=== PATIENT | female | born 2005 | race Caucasian/White ===

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

== ENCOUNTER 2025-06-22 17:14 | Emergency (ER) | payer MEDICAID, SELFPAY ==
--- OUTSIDE RECORDS SUMMARY | 2021-12-18 04:00 | XMS_ITS | Continuity of Care Document ---
Author Organization [facility] Address [address] [id number] [address] Phone Care Team Providers Care Loading Manager Name Role Phone [place], [place] Unavailable Unavailable Allergies, Adverse Reactions, Alerts Substance Reaction Status Criticality ESCITALOPRAM OXALATE Active No Info rmation Medications Medication Instructions Dosage Effective Dates (start - stop) Status Comments cetirizine 10 mg tablet 1 tablet by oral route daily - Active trazodone 150 mg tablet 1 tablet by oral route daily at [facility] - Active PreviDent 5000 Sensitive 1.1 %-5 % Dental Paste brush by topical route Not Available - Active use a half a pea size amount, spit do not rinse, NPO for 30 min. Lamictal 100 mg tablet - Active Problems Condition Type Effective Dates (start - stop) Clini manoj Status Comments No Known Problems Procedures Procedure Date OFFICE/OUTPATIENT VISIT EST Infectious Agent DNA Or RNA Patient Left / No Show OFFICE/OUTPATIENT VISIT, EST OFFICE/OUTPATIENT VISIT, EST NO CHARGE Finalize Template Workaround Behavioral Health Consult PREV VISIT EST AGE 12-17 Abdominal - Single Quadrant Or Organ, Li mited URINE TEST OFFICE/OUTPATIENT VISIT, NEW Prefabricated Stainless Stee l [place] Permanent To Analgesia, Anxiolysis, Inhalation Of Nit anali Oxide EDR Approval Note EDR Approval Note Prefabricated Stainless Stee l [place] Permanent To Amalgam Two Surfaces, Primary Or Permanent Analgesia, Anxiolysis, Inhalation Of Nit anali Oxide EDR Approval Note EDR Approval Note Comprehensive Oral Evaluatio n New Or Established Bitewings Two Films Panoramic Film Prophylaxis Child Topical Fluoride Varnish; Therapeutic Ap plication EDR Approval Note Comprehensive Oral Evaluatio n New Or Established Intraoral Periapical First Film Intraoral Periapical Each Additional Film Intraoral Periapical Each Additional Film Intraoral Periapical Each Additional Film Intraoral Periapical Each Additional Film Intraoral Periapical Each Additional Film Intraoral Periapical Each Additional Film Sedative Filling Sedative Filling Sedative Filling EDR Approval Note Advance Directives Directive Yes / No Effective Date File Name No Information Encounters Encounter Description Practice Location Reason(s) For Visit Diagnoses Date Provider Providers Copied on Encounter OFFICE/OUTPA TIENT VISIT EST [facility], [id number]- [place], [place], [id number], [place] tel:[phone] Pediatrics F1 [place]* (chief complaint) CoughAcute pharyngitis, unspecified etiologyExpo sure to COVID-19 virus 2 [place]. [address], [place], [address], [place]. tel:[phone] Referring Provider: [place] Velazquez, [address] [place], [address] . tel:[phone] [facility], [id number]- [facility], [place], [place], [address], [place] tel:[phone] Family Medicine F1 Encntr for obs for susp expsr to oth biolg agents ruled out 2 Alec Monson. [address], [place], [address], [place]. tel:[phone] Referring Provider: Ermias Bro, [address] [place], [address] . tel:[phone] [facility], [id number], [place], [address], [place] tel:[phone] [facility] cough, fever, wheezing, dizziness (chief complaint) No Information 1 Luis Miguel Read. [address], [place], [address], [place]. tel:[phone] Referring Provider: Jacek Bolanos, [address] [place], [address] . tel:[phone] OFFICE/OUTPA TIENT VISIT, [facility], [id number], [address], [place] tel:[phone] Pediatrics F1 Sore throat* (chief complaint) CoughNasal congestionSe nsation of fullness in both ears 1 Juan Carlos Evans. [address] [place], [address], [place]. tel:[phone] Referring Provider: Cristina Rangel, [address] [place], [address]. tel:[phone] OFFICE/OUTPA TIENT VISIT, [facility], [id number] [place], [address], [place] tel:[phone] [facility] (chief complaint) Unspecified acute conjunctivit is, left eye Sep- 1 Katherine Liu. [address], [place], [address], [place]. [phone] Referring Provider: Noe Murphy, [address] [place], [address] . tel:[phone] [facility], [id number] [id number]- [place], [place], [address], [place] tel:[phone] [facility] No Information 1 Nahid Carlisle. [address] [place], [address], [place]. [phone] Referring Provider: Orestes Padilla, [address] [place], [address]. tel:[phone] [facility], [id number], [place], [address], [place] tel:[phone] Behavioral Health Integration Other specified counseling Sep-2 0 No Information [facility], [id number] 10627[place], [place], [address], [place] tel:[phone] Family Medicine F1 Well child (chief complaint) Encntr for routine child health exam w/o abnormal findings Jul- 0 Alec Monson. [address], [place], [address], [place]. tel:[phone] PREV VISIT EST AGE 12-17 [facility], [id number]- [place], [place], [address], [place] tel:[phone] Family Medicine F1 Well child (chief complaint) Encntr for routine child health exam w/o abnormal findings Sep-2 0 Alec Monson. [address], [place], [address], [place]. tel:[phone] Referring Provider: Ermias Bro, [address] [place], [address] . tel:[phone] [facility], [id number] 4174864WZP[place]est[place], [place], [address], [place] tel:[phone] Family Medicine F1 No Information Sep-0 0 Alec Monson. [address], [place], [address], [place]. tel:[phone] [facility], [id number] 84640[place]DWP[place], [address], [place] tel:[phone] [facility] F1 Right upper quadrant pain 0 Alec Monson. [address], [place], [address], [place]. tel:[phone] Referring Provider: Ermias Bro, [address] [place], [address] . tel:[phone] OFFICE/OUTPA TIENT VISIT, [facility], [id number], [place], [address], [place] tel:[phone] Family Medicine F1 contraceptive management (chief complaint)psy ch meds (chief complaint) Other depressionEn counter for initial prescription of contraceptiv e pillsRight upper quadrant abdominal pain 0 Alec Ermias. [address], [place], [address], [place]. tel:[phone] Referring Provider: Ermias Bro, [address] [place], [address] . tel:[phone] [facility], [id number] 5358[place], [place], [address], [place] tel:[phone] Dental [facility] No Information Jan- 0-201 4 No Information [facility], [id number] [place], [address], [place] tel:[phone] [facility] No Information 4 No Information [facility], [id number] [id number]- [facility], [place], [place], [address], [place] tel:[phone] [facility] No Information 3 No Information [facility], [id number] [id number]- [facility], [place], [place], [address], [place] tel:[phone] [facility] No Information 2 No Information Family History Family Member Type Diagnosis Age At Onset No Information Immunizations Vaccine Date Status Comments Prevnar administered Source: Other P rovider Haemophilus influenzae type b vaccine, conjugate unspecified formulation administered Source: Other Provid er DTaP (younger than 7 yrs) administered So urce: Other Provider Varicella administered Source: Other P rovider polio, inactive administered Source: Othe r Provider MMR administered Source: Other P rovider Prevnar 13 administered Source: Other P rovider Haemophilus influenzae type b vaccine, conjugate unspecified formulation administered Source: Other Provid er DTaP (younger than 7 yrs) administered So urce: Other Provider polio, inactive administered Source: Othe r Provider Prevnar 13 administered Source: Other P rovider Haemophilus influenzae type b vaccine, conjugate unspecified formulation administered Source: Other Provid er Hep B (ped/adol, 3 dose) administered Cristina rce: Other Provider DTaP (younger than 7 yrs) administered So urce: Other Provider polio, inactive administered Source: Othe r Provider Prevnar 13 administered Source: Other P rovider Hib PedVax (PRP-OMP) administered Source: Other Provider Hep B (ped/adol, 3 dose) administered Cristina rce: Other Provider DTaP (younger than 7 yrs) administered So urce: Other Provider Hep B (ped/adol, 3 dose) administered Cristina rce: Other Provider Payers Payer name Insurance type Covered republican ID Brian Mensah (s) [employer] CI [id number] Social History Type Description Quantity Date Captured Comments Alcohol Use Details No Caffeine Use Details Unknown Tobacco Use Status Current non-smoker Smoking Status Never smoker Sex Female Gender Identity Female Vital Signs Date / Time: Height Weight BMI Pulse Rate Blood Pressure Temperature Respiratory Rate Body Surface Area Head Circumference Head Circ. Percentile Wt./Joseph. Percentile BMI percentile Pulse Ox Inhaled Ox 9:51 AM 61.02 in 60.100 kg (132.50 lbs) 25.0 2 kg/m eter (2) 97 /min 130/78 mm[Hg] 98.30 F 14 /min 85 95 % Chief Complaint And Reason For Visit From encounter dated '12/18/2021 09:00'. WINCHESTER* (chief complaint). Description: Pt here with parent and sibling. Has had [place], runny nose, sore throat and a cough at the beginning of symptoms that started 2 weeks ago. Cough seems to be better but WINCHE[place] is throbbing frequently and really bad fatigue. Pt states that she feels really bad and then one day will be back to normal and then the next day symptoms again. She states thatout of the last two weeks she has only had 2 good days. Rojas is a 16 year old female who presents with her father and younger brother. She complains primarily of off-and-on fatigue.Two weeks ago she had a runny nose, sore throat, cough, and headache. Presently she complains of throbbing headache, congestion, and severe fatigue. She also has had occasional, mild left ear aches for 3-4 days. She denies vomiting, diarrhea, fevers, muscle aches, rash, and no longer has a cough. She says one day she'll feel much better, then worse the next day. She has never had COVID despite frequent exposures; she was tested via nasal swab 1 week ago. Reason For Referral Reason For Referral No Information Plan Of Treatment Date Type Action Status Goal Dietary manageme nt education, guidance, and counseling completed Goal Dietary manageme nt education, guidance, and counseling completed Future Order: Radiology Order Ab dion - Right Upper Quadrant ([id number]), Ordered on: Ordered History Of Present Illness Encounter Date Complaint History Of Prese nt Illness WINCHESTER* Pt here with par ent and sibling. Has had [place], runny nose, sore throat and a cough at the beginning of symptoms that started 2 weeks ago. Cough seems to be better but [place] is throbbing frequently and really bad fatigue. Pt states that she feels really bad and then one day will be back to normal and then the next day symptoms again. She states that out of the last two weeks she has only had 2 good days. Rojas is a 16 year old female who presents with her father and younger brother. She complains primarily of off-and-on fatigue. Two weeks ago she had a runny nose, sore throat, cough, and headache. Presently she complains of throbbing headache, congestion, and severe fatigue. She also has had occasional, mild left ear aches for 3-4 days. She denies vomiting, diarrhea, fevers, muscle aches, rash, and no longer has a cough. She says one day she'll feel much better, then worse the next day. She has never had COVID despite frequent exposures; she was tested via nasal swab 1 week ago. cough, fever, wheezing, dizzines s Sore throat* Dad reports varun ent was sent home from school Thursday last week, patient had a negative COVID test at [facility] but still needs a note stating it is safe for this patient to return back to school. VP16 y/o F w/cough, congestion, rhinorrhea, mild sore throat since Thursday, was sent home from school for COVID testing which was Negative at [facility]. Denies f/c, headache, n/v/d, watery eyes, ear pain, chest pain, abd pain, urinary sx, myalgias. States she feels fine besides the congested nose and feeling of fullness in her ears. Using Umcka for her cough which has been helpful. Denies other sick contacts but does go to school. Denies seasonal allergies or h/o asthma, no inhaler at home. Eye problems Onset: 1 Day. Th e severity of the problem is mild. Pain scale: 0/10. The problem has worsened. The symptoms are persistent. Symptoms located at left conjunctiva. Patient reports no discomfort. Symptoms are associated with concurrent URI symptoms. Associated symptoms include conjunctival injection, left eye pain and tearing. Pertinent negatives include blurred vision, cough, fever, headache, itching, rash around affected eye(s), sore throat, vision loss and vomiting. Additional information: +eye pain and some decreased vision in the left eye * though this is a chronic problem for the pt. Well child Denies recent illness/infections/fever/abdominal pain/vomiting. Parent denies any concerns on vision or hearing. Mother reports patient is attending [employer] and they should have a updated vaccine record for patient there. Well child Patient is here with parent for well child examination.Denies any concerns today.Denies: recent illness with fever/ER visits/hospitalizationsDenies: hearing concerns Denies: vision concerns Denies speech or school concerns Denies: sleep concernsPMH: Anxiety, Depression, InsomniaMedications: Wellbutrin, Trazodone, OCPAllergies: Denies seasonal, latex , food or medications allergies.Vaccinations up to date to date.Home: Denies concerns on any issues at home.Education/employment (if older child/teen): Reports doing well in school. Activities: No activities noted. Drugs/tobacco use/vaping/alcohol: Denies illicit drugs/tobacco use/vaping/alcohol use.Sexual activity/Safety: Denies being sexually active. Denies feeling unsafe in any way. Denies being bullied. Denies wearing a seatbelt in the car.Suicide/depression: Confirms occasional depressive symptoms and thoughts of self harm contraceptive management Patient presents today with mother to [facility]. Patient reports she has taken a pill before, patient would like to take a pill, will order a UPT. psych meds Was at [facility] in [place] for mental health (cutter, severe depression). Doing well with her 3 meds. Needs refills now. Pt does need to set up with psychiatrist or counselor. Functional Status Date Functional Assessmen t Pain Score 0/10 Instructions Date Instruction Additional Infor dariana 1. You may take Umck a 10ml up to 3 times a day as needed for the cough and congestion. You can find this at the [employer] or [employer]. 2. You should drink plenty of fluids and get plenty of rest. 3. This is most likely a viral infection and antibiotics will not be helpful for this. 4. Take ibuprofen or tylenol as needed for aches, fever. 5. You may also take benadryl 10ml at bedtime as needed for cough, congestion and sleep.6. COVID 19 PCR swab obtained today and will call pt with results. Related to Exposure to COVID-19 virus acuteddx: acute vin l sinusitis vs other URI vs less likely RSV/Flusupportive care discussed with flonase/nasal washings, cough syrup, tylenol/ibuprofen if needed.school note, may return if afebrile for 24 hoursreturn precautions discussed, dad verbalized understanding Related to Nasal congestion acuteddx: acute vin l sinusitis vs other URI vs less likely RSV/Flusupportive care discussed with flonase/nasal washings, cough syrup, tylenol/ibuprofen if needed.school note, may return if afebrile for 24 hoursreturn precautions discussed, dad verbalized understanding Related to Sensation of fullness in both ears Patient advised about exercise R elated to Sensation of fullness in both ears Dietary management e ducation, guidance, and counseling Related to Sensation of fullness in both ears Conjunctivitis, or p inkeye: dx made by HPI and PE (see note)Supportive treatment alone is generally sufficient for sx to resolve in 5-7 days, however in some cases antibiotic drops may be required to treat a bacterial infection; abx eye drops can help moisturize and lubricate the eyes and improve symptoms (see med list); hand hygiene and other precautions discussed and PC f/u recommended Related to Unspecified acute conjunctivitis, left eye 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 Clothed physical examination done. Appropriate growth and development. Denies any concerns about vision or hearing. Routine well child & adolescent psychiatrist and anticipatory guidance. [employer] Parent Handout form given for age appropriate anticipatory guidance. Vaccinations given if due. Recommend follow up for routine dental care/ with dental clinic if due for dental care without a current dental provider. Return for next routine well child check and as needed. Related to Encntr for routine child health exam w/o abnormal findings Age appropriate anti cipatory guidance discussed (-21 years) Related to Encntr for routine child health exam w/o abnormal findings Age appropriate diet discussed (- years) Related to Encntr for routine child health exam w/o abnormal findings Age appropriate safe ty discussed (- years) Related to Encntr for routine child health exam w/o abnormal findings Oral Health Discussed ( yea rs) Related to Encntr for routine child health exam w/o abnormal findings [facility] Continue current medications. Prescription sent if due. Take as prescribed and call if having any side effects. Follow up in 1-3 months depending on how you are doing. Related to Other depression Xrays ordered today; will call xray results and treat per results. Supportive therapy advised. Call if symptoms worsen or persist. Related to Right upper quadrant abdominal pain UPT neg. rx sent. Ta ke as prescribed and call if having any side effects. Follow up in 1 yr and depending on how you are doing. Related to Encounter for initial prescription of contraceptive pills Patient advised about exercise R elated to Other depression Dietary management e ducation, guidance, and counseling Related to Other depression Benefits of flouride Benefits of flouride Benefits of flouride Assessments Type Assessment Date assessment Cough assessment Acute pharyngitis, unspecified e tiology assessment Exposure to COVID-19 virus Patient Care Teams Name Effective Dates (start - stop) Status Members No Information
[2025-06-22 17:21] VITALS: BP 111/68; PULSE 76; RESP 20; TEMP 36.8; O2SAT 100
--- NOTE | 2025-06-22 18:06 | ED_ITS ---
HPI - Anxiety General: Chief Complaint: Anxiety Stated Complaint: MANIC Time Seen by Provider: 06/22/25 17:32 History of Present Illness: Patient is a 20-year-old female who presents to the ED with concerns regarding medication management for her psychiatric conditions during . She is currently 23 weeks and reports having bipolar I, bipolar II, borderline personality disorder, and manic depressive disorder. The patient states her OB physician prescribed Zoloft, but she experienced severe side effects after taking it for two days, describing being extremely sedated to the point where her fianc? had to scream her name to get her to respond. She reports calling her OB who advised her to discontinue the medication but did not provide an alternative treatment option. Patient reports previous positive response to Wellbutrin and currently takes hydroxyzine 25mg for sleep. She denies suicidal ideation but describes feeling manic and states she doesn't want to feel like I'm going insane every day of my life. She is concerned about the impact of her untreated psychiatric conditions on her . This is her second ; her first ended in miscarriage at 6 weeks. She denies any current vaginal bleeding, discharge, or abdominal pain. Related Data Previous Rx's ?Medication ?Instructions ?Recorded bupropion HCl 300 mg 24 hr tablet, 300 mg PO DAILY 30 days #30 tabs 10/11/24 extended release hydroxyzine HCl 50 mg tablet 50 mg PO TID PRN anxiety #90 tabs 10/11/24 fluoxetine 20 mg capsule (Prozac) 20 mg PO DAILY #30 c aps 06/22/25 Allergies Allergy/AdvReac Type Severity Reaction Status Date / Time aspirin Allergy Unknown Unknown Verified 06/22/25 17:23 sertraline (From Zoloft) Allergy Unknown Unknown Verified 06/22/25 17:23 COUNT INCLUDES THE [facility] ED PFS: Medical History (Updated 06/22/25 @ 18:07 by Jesse Deras MD) Psychiatric care Social History Smoking and tobacco/nicotine status: current every day tobacco/nicotine user Physical Exam Const: COMMON NORMALS: no acute distress, average body habitus, alert and well nourished GENERAL APPEARANCE: cooperative ORIENTATION/CONSCIOUSNESS: Yes awake HENMT: COMMON NORMALS: normocephalic and atraumatic HEAD & SCALP: normocephalic and atraumatic Eye: COMMON NORMALS: conjunctivae normal CONJUNCTIVA: Yes conjunctivae normal Neck/C-Spine: GENERAL: Yes normal visual inspection Resp: COMMON NORMALS: normal respiratory effort, No retractions and No use of accessory muscles Cardio: COMMON NORMALS: regular rhythm and Peripheral pulses 2+ throughout RHYTHM: regular rhythm PERIPHERAL PULSES: Peripheral pulses 2+ throughout GI: COMMON NORMALS: Soft to palpation and non-tender PALPATION: Yes Soft to palpation Extremity: COMMON NORMALS: full ROM and no pedal edema Neuro: COMMON NORMALS: no focal motor deficits SENSORIUM/ORIENTATION: Yes alert Psych: COMMON NORMALS: mental status grossly normal OTHER: Patient denies any suicidal ideation or homicidal ideation or thoughts of self- harm. Skin: COMMON NORMALS: no rashes or lesions noted GENERAL SKIN EXAM: no rashes or lesions noted Course Vital Signs: Vital signs: Vital Signs Temperature 98.2 F 06/22/25 17:21 Pulse Rate 76 06/22/25 17:21 Respiratory Rate 20 H 06/22/25 17:21 Blood Pressure 111/68 06/22/25 17:21 Pulse Oximetry 100 06/22/25 17:21 Oxygen Delivery Me thod Room Air 06/22/25 17:21 MDM - Anxiety Medical Decision Making ROS: Constitutional: Denies fever, chills, or fatigue. Psychiatric: Reports feeling manic but denies suicidal or homicidal ideation. History of bipolar disorder, borderline personality disorder. Obstetric: Denies vaginal bleeding or discharge. Denies abdominal pain. Neurological: Reports significant sedation with Zoloft use. All other systems reviewed and negative. 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 Additional considerations include medication side effects and -related mood changes. Based on this initial impression I will order fluoxetine (Prozac) at a low dose as an alternative to Zoloft, with instructions for the patient to follow up with her OB doctor for ongoing management of her psychiatric conditions during . CONSIDERED BUT NOT PERFORMED: Psychiatric consultation CONSIDERED but NOT DONE due to patient's stable mental status without suicidal ideation and established plan for medication management with OB follow-up already scheduled. FINAL IMPRESSION: Based on all the above, my clinical impression is most compatible with anxiety and mood disorder (bipolar disorder, borderline personality disorder) in with medication intolerance. The clinical picture is not currently suggestive of suicidal ideation, obstetric complications, or acute psychiatric emergency requiring inpatient management. Although other conditions were also considered, they were deemed unlikely based on the clinical information available. CLINICAL DISPOSITION: The patient's current condition is stable in my estimation and the most appropriate and indicated disposition at this time is discharge home with prescription for fluoxetine (Prozac) at a low dose and instructions to follow up with her OB doctor as scheduled on . The patient is safe for discharge as she denies suicidal ideation, has good insight into her condition, sought help appropriately when experiencing symptoms, and has a supportive fianc? at home. She has a scheduled follow-up with her OB doctor in the near future for continued management of her psychiatric conditions during . RISK STRATIFICATION AND CLINICAL DECISION RULES APPLIED: No formal clinical decision rules were applied during this encounter. Clinical judgment was used to determine that the patient was at low risk for self-harm based on her denial of suicidal ideation, good insight into her condition, and appropriate help-seeking behavior. CASE SUMMARY: 20-year-old female at 23 weeks gestation presenting with anxiety and mood disorder requiring medication management. Patient has history of bipolar disorder and borderline personality disorder, previously tried Zoloft with intolerable sedation. Currently only taking hydroxyzine for sleep and vitamins. Patient denies suicidal ideation but reports feeling manic and concerned about impact on . After evaluation, patient was prescribed low-dose fluoxetine (Prozac) as an alternative treatment with instructions to follow up with OB doctor as scheduled. Patient was deemed stable for discharge with appropriate follow-up plan in place. No radiology studies performed this visit Discharge Plan Discharge Patient Disposition: Home Clinical Impression: Generalized anxiety disorder Condition: Stable Prescriptions: New fluoxetine [Prozac] 20 mg capsule 20 mg PO DAILY Qty: 30 0RF No Action bupropion HCl 300 mg tablet extended release 24 hr 300 mg PO DAILY 30 Days Qty: 30 3RF hydroxyzine HCl 50 mg tablet 50 mg PO TID PRN (Reason: anxiety) Qty: 90 3RF Discharge Orders: Discharge ED (Routine); Ordered 06/22/25 Ordered By: Jesse Deras Referrals: Lauren Wynn NP [Primary Care Provider, Nurse Practitioner] Patient Instructions: Depression (ED), Suicide Prevention (ED), Opioid Safety, Pain Management, Patient Portal & Lydia Instructions Activity Restrictions/Additional Instructions: MEDICATIONS: 1. Fluoxetine (Prozac) - Take as prescribed. 2. Continue hydroxyzine 25mg for sleep as needed 3. Continue vitamins as directed by your OB doctor FOLLOW-UP: 1. Follow up with your OB doctor as scheduled on to discuss medication management 2. Consider referral to a psychiatrist experienced in managing psychiatric conditions during RETURN TO THE EMERGENCY DEPARTMENT IMMEDIATELY IF: 1. You experience thoughts of harming yourself or others 2. You experience severe side effects from the new medication 3. You have any vaginal bleeding or fluid leakage 4. You experience decreased movement 5. You have severe abdominal pain 6. You feel your psychiatric symptoms are worsening significantly ADDITIONAL INSTRUCTIONS: 1. It may take 2-4 weeks to notice the full effects of fluoxetine 2. Do not stop taking your medication without consulting your doctor 3. Maintain open communication with your OB doctor about any side effects or concerns 4. Consider support groups for women with mood disorders during Print Language: Croatian Coding Level of Care Code ED Pet Care Technician for Buck Saldaña
--- OUTSIDE RECORDS SUMMARY | 2025-06-23 07:23 | XMS_ITS | Clinical Summary ---
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 120 Tablet 2 Active Additional Information Patient not taking.Reported on 05/03/2024 ondansetron (Zofran) 4 mg TabletIndicatio ns:Nausea and vomiting, unspecified vomiting type Take 1 Tablet (4 mg) by mouth every 8 hours as needed for Nausea/Emesis. 30 Tablet 4 Active ondansetron (ZOFRAN ODT) 4 mg Tablet, Rapid Dissolve Take 1 Tablet (4 mg) by mouth every 6 hours as needed for Nausea/Emesis. Dissolve tablet on top of tongue, then swallow with saliva. To be dispersed here. 4 Tablet 5 Active ondansetron (ZOFRAN ODT) 4 mg Tablet, Rapid Dissolve Take 1 Tablet (4 mg) by mouth every 6 hours as needed for Nausea/Emesis. Dissolve tablet on top of tongue, then swallow with saliva. 16 Tablet 5 Active Active Problems Problem Noted Date Diagnosed Date Generalized anxiety disorder 03/14/2019 Chronic post-traumatic stress disorder (PTSD) Moderate recurrent major depression 03/14/2019 School avoidance 03/14/2019 Comments Yes Resolved Problems Problem Noted Date Diagnosed Date Resolved Date Chronic generalized abdominal pain 07/09/2018 03/14/2019 Oppositional defiant disorde r with chronic irritability and anger 06/08/2018 03/14/2019 Dental caries 07/07/2014 06/07/2018 Behavior problem in child 07/23/2012 Fecal soiling 07/23/2012 06/07/2018 Daytime wetting 05/24/2012 06/07/2018 Encounters Date Type Department Care Team Description 06/13/2025 External Device Data [facility] Provider, Abstract 06/07/2025 External Device Data [facility] Provider, Abstract 06/07/2025 External Device Data [facility] Provider, Abstract 05/09/2025 External Device Data [facility] Provider, Abstract 05/02/2025 External Device Data [facility] Provider, Abstract 04/13/2025 External Device Data [facility] Provider, Abstract 04/04/2025 External Device Data [facility] Provider, Abstract 04/04/2025 External Device Data [facility] Provider, Abstract 04/04/2025 External Device Data [facility] Provider, Abstract from Last 3 Months Family History Medical History Relation Name Comments Anxiety Brother 1 Jordan Other Brother 1 Jordan Oppositional De fiant Disorder, Disruptive Mood Dysregulation Disorder (DMDD), Healthy Brother 2 Max Healthy Brother 3 Luis Enrique Drug Abuse Father Ang Garcia Anxiety Maternal Grandmother Depression Maternal Grandmother Depression Mother Ruthie Drug Abuse Mother Ruthie Relation Name Status Comments Brother 1 Jordan Alive Brother 2 Max Alive Brother 3 Luis Enrique Alive Father Ang Garcia Alive Half-Sister Alive Maternal Grandmother Mother Ruthie Alive Social History Tobacco Use Types Packs/Day Years Used Date Smoking Tobacco: Never Smokeless Tobacco: Never Comments:Quit smoking: never smoker Alcohol Use Standard Drinks/Week Comments Not Currently 0 (1 standard drink = 0.6 oz pur e alcohol) Comments Yes Sex and Gender Information Value Date Recorded Sex Assigned at Not on file Legal Sex Female 4:11 PM MANAGEMENT CONSULTING Gender Identity Not on file Sexual Orientation Not on file Last Filed Vital Signs Vital Sign Reading Time Taken Comments Blood Pressure 120/70 03/07/2025 3:30 AM CDT Pulse 78 03/07/2025 3:30 AM CDT Temperature 37.6 C (99.6 F) 03/07/2025 12:52 AM CDT Respiratory Rate 18 03/07/2025 12:5 2 AM CDT Oxygen Saturation 100% 03/07/2025 3:30 AM CDT Inhaled Oxygen Concentration - - Weight 53.4 kg (117 lb 12.8 oz) 025 12:52 AM CDT Height 152.4 cm (5') 03/07/2025 12:52 AM CDT Body Mass Index 23.01 03/07/2025 12:52 AM CDT Plan of Treatment Health Maintenance Due Date Last Done Comments CHLAMYDIA SCREENING (ANNUAL) 11-24 YEARS 2016 DTAP/TDAP/TD VACCINES (5 - Tdap) 2016 12/03/2006, 02/25/2006, 2005, Additional history exists HPV VACCINES (1 - 3-dose series) 2020 INFLUENZA VACCINE (#1) 2025 12/16/2018, 2018 RSV VACCINE (60+ or ) (1 - 1-dose 75+ series) 2080 HEPATITIS B VACCINES Completed 2005, 2005, 2005 Insurance [employer]IDS [employer] [facility] Care Teams 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
== END 2025-06-22 18:15 | disposition home or self-care (01) ==
PROVIDERS: Emergency Provider Student in an Organized Health Care Education/Training Program; PCP Nurse Practitioner Family
DX: F41.8 Other specified anxiety disorders (principal); Z72.0 Tobacco use
CPT/HCPCS: 99283